=== PATIENT | female | born 1985 | race Caucasian/White ===

== ENCOUNTER 2023-11-22 13:41 | Outpatient (AMB) | payer OTHER, SELFPAY ==
--- NOTE | 2023-11-22 13:53 | A.OFFVIS_ITS ---
Intake Intake Visit Reasons: low back pain [employer] Required: No Assessment & Plan Assessment & Plan (1) Back pain: Code(s): M54.9 - Dorsalgia, unspecified Plan Dear Michael, Thank you for referring Mrs Hoang to our office today. She is a very nice 38-year-old female otherwise healthy, very active who was participating in cross fit activities, and a softball leak in the spring and noticed shortly after the season started that she was starting to have a severe pain on the left side of her low back. She noticed a lot when she was running at first. She ultimately went to her PCP who referred her to your office. She underwent a number of chiropractic treatments which did not help. She stopped going to the [employer] classes at your recommendation. Unfortunately that did not help much either. She did start yoga as an alternative, that did not seem to help much either. She did notice a bit of relief after she started doing some therapy like band exercises sometime around August, but then went on a very long car ride and after that car ride she noticed a significant increase in her symptoms. It feels like she has a bruise in someone is poking at right over the left side of her low back, localizing to some degree near the SI joint or the posterior iliac crest. She does not report any radicular features other than occasional numbness in her leg but it is not all that bothersome and really does not act as a complaint really. The pain is significantly worse when she is sitting, which she does all day. The transition from sitting to standing can be off all. She works as a customer support engineer. Standing is a bit easier. Sleeping at night on her left side is difficult. At this point she is very frustrated because nothing has helped. She has tried gabapentin, oxycodone, nonsteroidal anti- inflammatories as well as Tylenol. She smokes marijuana daily and even this does not help much. She came here to see us today with an MRI showing some mild degenerative disc disease and some possible effacement of the left L4 nerve in the lateral recess. PMH: She is otherwise healthy, she has some history of GI issues but no major surgeries or major medical conditions. Social hx: She has most marijuana daily, does not smoke cigarettes or use alcohol. Medications: Gabapentin, oxycodone, nonsteroidal anti-inflammatories, Tylenol Allergies: None Physical exam: Awake alert oriented no acute distress, she has full strength of bilateral lower extremities but some pain with movement of her left leg with flexion. Positive finger Norma test. In a supine position I was able to reproduce the pain with SEB testing. Negative compression test. A lot of tenderness over the left SI joint. Imaging review: Lumbar MRI done at [facility] [place] shows very mild degenerative disc disease, the radiology report suggests that there is some effacement of the left L4 nerve root in the lateral recess, but this is really very subtle and there is no overt compression. There is no foraminal compression, herniated disc or malalignment in the lumbar spine. Impression: 38-year-old female very active, was involved in multiple sports last spring including cross fit and softball and noticed the onset of a left- sided low back pain which is far lateral near the SI joint or the posterior iliac crest. She does not have any radicular features. To this point she has failed conservative treatment. The only thing that did help her for a while she was doing some band exercises before she went on a long car ride that seemed to make all the symptoms get worse. Sitting is the worst position, she also has difficulty at night laying on her left side. I was able to reproduce some of the pain with SEB testing on the left. Clinically it sounds like this could either be a gluteal tendinopathy from the lifting and cross fit exercises which was aggravated with the playing softball and the long car ride. The other differential is an SI joint inflammation. She did have 2 natural births and we know this can predispose to SI joint problems. I gave her a referral for dedicated physical therapy instead of the chiropractor. I think this will go away in time. In the meantime, she was due to get an L4 TFE but I do not think she really has radicular features suggestive of nerve irritation. It is very localized over the left side of the low back near the lateral edge of the SI joint and iliac crest. I wonder if SI joint block might be a better choice. Thank you for allowing us to care for your patient. The total time spent with this visit with this patient was 45 minutes reviewing history, physical exam, lumbar imaging review, and implementation of treatment plan or further diagnostic testing Selvin Calderon MD,PhD [facility] Orders: Orders PT Evaluation and Treatment Today M54.9 - Dorsalgia, unspecified Coding Level of Care Code New Pt Level 4 (62325) Diagnoses Back pain M54.9
== END 2023-11-22 14:45 | disposition home or self-care (01) ==
PROVIDERS: PCP Internal Medicine; Referring Provider Physician Assistant; Visit Provider Physician Assistant
DX: M54.9 Dorsalgia, unspecified (principal)
CPT/HCPCS: 99204

== ENCOUNTER → 2023-11-22 13:41 | Outpatient (BNVA) | payer OTHER, SELFPAY | PROVIDERS: PCP Internal Medicine; Visit Provider Physician Assistant ==